=== PATIENT | male | born 1990 | race Caucasian/White ===

== ENCOUNTER 2020-01-11 13:53 | Emergency (ER) | payer OTHER ==
[~2020-01-11] VITALS: Ht 182.9 cm; Wt 86.2 kg
[2020-01-11 14:10] VITALS: BP 130/85
[2020-01-11] MEDS ORDERED: AZITHROMYCIN250 MG PO (16:15)
[2020-01-11] MEDS ORDERED: SUPRAX400 M1 PO (16:15)
== END 2020-01-11 16:31 | disposition home or self-care (01) ==
LOC: M.ERS 13:53
DX: Z20.2 Contact with and (suspected) exposure to infections with a predominantly sexual mode of transmission (principal); F17.210 Nicotine dependence, cigarettes, uncomplicated